=== PATIENT | male | born 1975 | race Caucasian/White ===

== ENCOUNTER 2017-08-01 11:05 | Emergency (ER) | payer SELFPAY ==
[~2017-08-01] VITALS: Ht 167.6 cm; Wt 70.0 kg
[~2017-08-01 11:05] MED LIST: BACTRIM DS1 TAB PO; BACTROBAN2 % EX; CELEXA10 MG PO; CELEXA20 MG PO; CIPROFLOXACN500 MG PO; CITALOPRAM20 MG PO; FLEXERIL OR; FLEXERIL PO; GABAPENTIN300 MG PO; HYDROCO/APAP1 TA9 OR; LORTAB 7.5-3251 TAB PO; MEDDOSEPAK PO; METRONIDAZOL500 MG PO; NAPROSYN250 MG PO; NAPROSYN500 MG PO; NEURONTIN300 MG PO; NORCO1 TA1 PO; PERCOCET 5/325M1 TAB PO; RISPERDAL0.5 MG PO; ULTRAM50 M1 PO; ULTRAM50 MG OR; ULTRAM50 MG PO; XANAX0.25 MG PO; ZOFRAN ODT4 MG PO; ZOFRAN4 MG/TAB PO
[2017-08-01] MEDS ORDERED: CITALOPRAM40 MG PO (11:11)
[2017-08-01] MEDS ORDERED: MEDDOSEPAK PO (12:24)
[2017-08-01] MEDS ORDERED: FLEXERIL PO (12:24)
[2017-08-01] MEDS ORDERED: TORADOL PO (12:24)
[2017-08-01 12:33] VITALS: BP 136/89
== END 2017-08-01 12:33 | disposition home or self-care (01) | DRG 552 ==
LOC: ED 11:05
DX: M54.5 Low back pain (principal); F17.210 Nicotine dependence, cigarettes, uncomplicated; G89.29 Other chronic pain; F32.9 Major depressive disorder, single episode, unspecified

== ENCOUNTER 2018-06-29 08:57 | Emergency (ER) | payer SELFPAY ==
[~2018-06-29] VITALS: Ht 167.6 cm; Wt 60.0 kg
[~2018-06-29 08:57] MED LIST changes: +CITALOPRAM40 MG PO; +TORADOL PO
[2018-06-29 10:01] LABS: URINE BILIRUBIN - DIPSTICK NEGATIVE (NEGATIVE); URINE BLOOD DIPSTICK SMALL (NEGATIVE); URINE COLOR YELLOW; URINE GLUCOSE - DIPSTICK NEGATIVE (NEGATIVE); URINE KETONE NEGATIVE (NEGATIVE); URINE LEUK ESTERASE NEGATIVE (NEGATIVE); URINE NITRITE - DIPSTICK NEGATIVE (Negative); URINE PH 6.5 (4.5-8.0); URINE PROTEIN - DIPSTICK NEGATIVE (NEG-TRACE); URINE SPECIFIC GRAVITY 1.025; URINE UROBILINOGEN - DIPSTICK 0.2 E.U./dL (0.2)
[2018-06-29 10:02] LABS: HEMATOCRIT 43.5 % (39.0-50.0); HEMOGLOBIN 14.3 g/dl (14.0-18.0); IMMATURE GRANULOCYTES 0.2 % (0.0-5.0); MEAN CELL VOLUME 99.3 fL CALC (80.0-100.0); MEAN CORPUSCULAR HGB 32.6 pG CALC (26.0-32.0); MEAN CORPUSCULAR HGB CONC 32.9 g/L CALC (32.0-36.0); NEUT# 4.29 thou/uL (1.82-7.42); RED BLOOD COUNT 4.38 mill/uL (4.70-6.10); RED CELL DISTRI WIDTH 12.6 % (11.5-15.5)
[2018-06-29 10:04] LABS: URINE MUCUS FEW hpf (NONE-FEW); URINE RBC 0-2 RBC/hpf (0-5)
[2018-06-29 10:20] LABS: ALBUMIN 3.9 g/dL (3.2-5.0); ALKALINE PHOSPHATASE 57 u/l (38-126); AMYLASE 100 u/l (30-110); ANION GAP 10 (6-22 (CALC)); BILIRUBIN, TOTAL 0.3 mg/dL (0.0-1.4); BUN 11 mg/dL (9-20); BUN/CREATININE RATIO 10 (12-20 (CALC)); CARBON DIOXIDE 27 mmol/l (22-30); CHLORIDE 108 mmol/l (95-108); CREATININE 1.1 mg/dL (0.7-1.3); GFR > 60 ML/MIN (>=60 (CALC)); GFR FOR AFR.AMER. > 60 ML/MIN (>=60 (CALC)); LIPASE 131 u/l (23-300); POTASSIUM 4.1 mmol/l (3.5-5.1); SGOT/AST 28 u/l (17-59); SODIUM 140 mmol/l (137-146); TOTAL PROTEIN 6.3 g/dL (6.3-8.2)
[2018-06-29] MEDS ORDERED: CIPROFLOXACN500 MG PO (11:50)
[2018-06-29] MEDS ORDERED: ZOFRAN ODT4 MG PO (11:50)
[2018-06-29 12:05] VITALS: BP 132/82
== END 2018-06-29 12:12 | disposition home or self-care (01) | DRG 392 ==
LOC: ED 08:57
PROVIDERS: Emergency Medicine
DX: K52.9 Noninfective gastroenteritis and colitis, unspecified (principal); R10.33 Periumbilical pain; R11.2 Nausea with vomiting, unspecified; R19.7 Diarrhea, unspecified

== ENCOUNTER 2018-07-19 08:15 | Emergency (ER) | payer OTHER ==
[~2018-07-19] VITALS: Ht 165.1 cm; Wt 69.5 kg
[2018-07-19 09:55] VITALS: BP 136/79
[2018-07-19] MEDS ORDERED: TRAMADOL HYDROC50 MG PO (10:01)
== END 2018-07-19 10:00 | disposition home or self-care (01) | DRG 563 ==
LOC: ED 08:15
DX: S46.912A Strain of unspecified muscle, fascia and tendon at shoulder and upper arm level, left arm, initial encounter (principal); F17.210 Nicotine dependence, cigarettes, uncomplicated; X58.XXXA Exposure to other specified factors, initial encounter

== ENCOUNTER 2018-08-05 21:20 | Emergency (ER) | payer SELFPAY ==
[~2018-08-05] VITALS: Ht 165.1 cm; Wt 63.6 kg
[~2018-08-05 21:20] MED LIST changes: +TRAMADOL HYDROC50 MG PO
[2018-08-05 21:29] VITALS: BP 122/71
== END 2018-08-05 22:50 | disposition left against medical advice (07) | DRG 914 ==
LOC: ED 21:20
DX: S09.90XA Unspecified injury of head, initial encounter (principal); S43.402A Unspecified sprain of left shoulder joint, initial encounter; M25.512 Pain in left shoulder; S43.102A Unspecified dislocation of left acromioclavicular joint, initial encounter; Z91.19 Patient's noncompliance with other medical treatment and regimen; W18.39XA Other fall on same level, initial encounter; Y93.E8 Activity, other personal hygiene; Y92.002 Bathroom of unspecified non-institutional (private) residence as the place of occurrence of the external cause

== ENCOUNTER 2018-12-13 07:59 | Emergency (ER) | payer MEDICAID ==
[~2018-12-13] VITALS: Ht 162.6 cm; Wt 68.0 kg
[2018-12-13] MEDS ORDERED: PERCOCET 10/31 COMBO PO (08:27)
[2018-12-13 09:32] VITALS: BP 130/89
== END 2018-12-13 09:45 | disposition home or self-care (01) | DRG 103 ==
LOC: ED 07:59
DX: R51 Headache (principal); F17.210 Nicotine dependence, cigarettes, uncomplicated

== ENCOUNTER 2019-02-27 19:11 | Emergency (ER) | payer OTHER ==
[~2019-02-27] VITALS: Ht 170.2 cm; Wt 68.2 kg
[~2019-02-27 19:11] MED LIST changes: +PERCOCET 10/31 COMBO PO
[2019-02-27] MEDS ORDERED: CITALOPRAM40 M1 PO (19:32)
[2019-02-27] MEDS ORDERED: VENLAFAXINE HCL75 M1 PO (19:33)
[2019-02-27] MEDS ORDERED: TORADOL PO (22:01)
[2019-02-27 22:10] VITALS: BP 111/70
== END 2019-02-27 22:40 | disposition home or self-care (01) ==
LOC: ED 19:11
DX: S00.01XA Abrasion of scalp, initial encounter (principal); S00.81XA Abrasion of other part of head, initial encounter; S16.1XXA Strain of muscle, fascia and tendon at neck level, initial encounter; S20.219A Contusion of unspecified front wall of thorax, initial encounter; F17.200 Nicotine dependence, unspecified, uncomplicated; Y00.XXXA Assault by blunt object, initial encounter; Y92.009 Unspecified place in unspecified non-institutional (private) residence as the place of occurrence of the external cause

== ENCOUNTER 2020-04-13 06:24 | Day surgery (SDC) | payer OTHER ==
[~2020-04-13] VITALS: Ht 170.2 cm; Wt 63.5 kg
[~2020-04-13 06:24] MED LIST changes: +BL IBUPROFEN200 MG PO; +CITALOPRAM40 M1 PO; +CYMBALTA30 MG PO; +HYDROCODONE/ACE1 TAB PO; +HYDROXYZINE HCL10 MG PO; +MIRTAZAPINE15 M1 PO; +NARCAN4 MG/0.1 M; +NORCO1 TA2 PO; +VENLAFAXINE HCL75 M1 PO
[2020-04-13 13:24] VITALS: BP 128/85
== END 2020-04-13 08:46 | disposition home or self-care (01) ==
LOC: ORM 06:24
PROVIDERS: ATTEND Anesthesiology Pain Medicine
DX: M54.5 Low back pain (principal); M54.6 Pain in thoracic spine; Z01.84 Encounter for antibody response examination

== ENCOUNTER 2020-07-08 12:39 | Emergency (ER) | payer OTHER ==
[2020-07-08 15:08] VITALS: BP 122/89
[2020-08-02] MEDS ORDERED: LORTAB 1010 MG PO (08:28)
[2020-08-09] MEDS ORDERED: LORTAB 1010 MG PO (08:30)
[2020-09-13] MEDS ORDERED: ALPRAZOLAM ER0.5 MG PO (08:15)
[2020-09-13] MEDS ORDERED: LORTAB 1010 MG PO (08:25)
== END 2020-07-08 15:08 | disposition left against medical advice (07) ==
LOC: ED 12:39
DX: M54.6 Pain in thoracic spine (principal); G89.29 Other chronic pain; F31.9 Bipolar disorder, unspecified; F17.200 Nicotine dependence, unspecified, uncomplicated; Z98.1 Arthrodesis status; Z91.19 Patient's noncompliance with other medical treatment and regimen

== ENCOUNTER 2020-08-06 14:34 | Emergency (ER) | payer OTHER ==
[~2020-08-06] VITALS: Ht 170.2 cm; Wt 64.0 kg
[~2020-08-06 14:34] MED LIST changes: +LORTAB 1010 MG PO
[2020-08-06] MEDS ORDERED: SEROQUEL25 MG PO (15:00)
[2020-08-06] MEDS ORDERED: KEFLEX500 MG PO (16:36)
[2020-08-06] MEDS ORDERED: CIPROFLOXACN500 MG PO (16:36)
[2020-08-06 16:38] VITALS: BP 148/72
[2020-08-09] MEDS ORDERED: LORTAB 1010 MG PO (08:30)
[2020-09-13] MEDS ORDERED: ALPRAZOLAM ER0.5 MG PO (08:15)
[2020-09-13] MEDS ORDERED: LORTAB 1010 MG PO (08:25)
== END 2020-08-06 16:45 | disposition home or self-care (01) ==
LOC: ED 14:34
DX: S61.452A Open bite of left hand, initial encounter (principal); F31.9 Bipolar disorder, unspecified; F17.210 Nicotine dependence, cigarettes, uncomplicated; W58.01XA Bitten by alligator, initial encounter; Y93.11 Activity, swimming; Y92.828 Other wilderness area as the place of occurrence of the external cause; Z88.3 Allergy status to other anti-infective agents

== ENCOUNTER 2020-08-08 09:19 | Emergency (ER) | payer OTHER ==
[~2020-08-08] VITALS: Ht 162.6 cm; Wt 65.0 kg
[~2020-08-08 09:19] MED LIST changes: +KEFLEX500 MG PO; +SEROQUEL25 MG PO
[2020-08-08 10:02] VITALS: BP 137/90
[2020-08-09] MEDS ORDERED: LORTAB 1010 MG PO (08:30)
[2020-09-13] MEDS ORDERED: ALPRAZOLAM ER0.5 MG PO (08:15)
[2020-09-13] MEDS ORDERED: LORTAB 1010 MG PO (08:25)
== END 2020-08-08 10:10 | disposition home or self-care (01) ==
LOC: ED 09:19
DX: S61.452D Open bite of left hand, subsequent encounter (principal); F17.210 Nicotine dependence, cigarettes, uncomplicated; F31.9 Bipolar disorder, unspecified; V00-Y99 External causes of morbidity

== ENCOUNTER 2020-10-26 07:56 | Day surgery (SDC) | payer OTHER ==
[~2020-10-26] VITALS: Ht 162.6 cm; Wt 63.5 kg
[~2020-10-26 07:56] MED LIST changes: +ALPRAZOLAM ER0.5 MG PO
[2020-10-26] MEDS ORDERED: LORTAB 1010 MG PO (10:20)
[2020-10-26 10:36] VITALS: BP 144/94
== END 2020-10-26 10:26 | disposition home or self-care (01) ==
LOC: ORM 07:56
PROVIDERS: ATTEND Anesthesiology Pain Medicine
DX: M54.5 Low back pain (principal); M47.895 Other spondylosis, thoracolumbar region

== ENCOUNTER 2020-10-31 23:14 | Emergency (ER) | payer OTHER ==
[~2020-10-31] VITALS: Ht 162.6 cm; Wt 63.3 kg
[2020-11-01 01:29] LABS: IMMATURE GRANULOCYTES 0.4 % (0.0-5.0); MEAN CELL VOLUME 100.5 fL CALC (80.0-100.0); MEAN CORPUSCULAR HGB 32.7 pG CALC (26.0-32.0); MEAN CORPUSCULAR HGB CONC 32.5 g/dL CAL (32.0-36.0); NEUT# 13.41 thou/uL (1.82-7.42); RED BLOOD COUNT 3.7 mill/uL (4.70-6.10); RED CELL DISTRI WIDTH 12.3 % (11.5-15.5)
[2020-11-01 01:33] LABS: HEMATOCRIT 37.2 % (39.0-50.0); HEMOGLOBIN 12.1 g/dl (14.0-18.0)
[2020-11-01 01:46] LABS: URINE BILIRUBIN - DIPSTICK NEGATIVE (NEGATIVE); URINE BLOOD DIPSTICK SMALL (NEGATIVE); URINE COLOR YELLOW; URINE GLUCOSE - DIPSTICK NEGATIVE (NEGATIVE); URINE KETONE NEGATIVE (NEGATIVE); URINE NITRITE - DIPSTICK NEGATIVE (Negative); URINE PROTEIN - DIPSTICK NEGATIVE (NEG-TRACE); URINE SPECIFIC GRAVITY >=1.030; URINE UROBILINOGEN - DIPSTICK 0.2 E.U./dL (0.2)
[2020-11-01 01:47] LABS: URINE LEUK ESTERASE NEGATIVE (NEGATIVE)
[2020-11-01 01:48] LABS: URINE EPITHELIAL CELLS FEW EPI/hpf (0-FEW)
[2020-11-01 01:49] LABS: URINE BACTERIA FEW hpf
[2020-11-01 02:00] LABS: ALBUMIN 3.9 g/dL (3.2-5.0); ALKALINE PHOSPHATASE 58 u/l (38-126); BILIRUBIN, TOTAL 0.3 mg/dL (0.0-1.4); BUN 14 mg/dL (9-20); BUN/CREATININE RATIO 16 (12-20 (CALC)); CARBON DIOXIDE 31 mmol/l (22-30); CHLORIDE 103 mmol/l (95-108); CREATININE 0.9 mg/dL (0.7-1.3); GFR > 60 ML/MIN (>=60 (CALC)); GFR FOR AFR.AMER. > 60 ML/MIN (>=60 (CALC)); SGOT/AST 18 u/l (17-59); SODIUM 138 mmol/l (137-146); TOTAL PROTEIN 6.5 g/dL (6.3-8.2)
[2020-11-01 02:01] LABS: ANION GAP 8 (6-22 (CALC)); POTASSIUM 3.6 mmol/l (3.5-5.1)
[2020-11-01] MEDS ORDERED: KEFLEX500 MG PO (02:06)
[2020-11-01 03:34] VITALS: BP 133/81
[2020-11-29] MEDS ORDERED: LORTAB 1010 MG PO (08:42)
[2021-01-17] MEDS ORDERED: LORTAB 1010 MG PO (08:32)
== END 2020-11-01 03:54 | disposition home or self-care (01) ==
LOC: ED 23:14
PROVIDERS: Emergency Medicine
DX: F14.10 Cocaine abuse, uncomplicated (principal); N39.0 Urinary tract infection, site not specified; S09.90XA Unspecified injury of head, initial encounter; F31.9 Bipolar disorder, unspecified; F17.200 Nicotine dependence, unspecified, uncomplicated; X58.XXXA Exposure to other specified factors, initial encounter

== ENCOUNTER 2021-01-04 06:32 | Day surgery (SDC) | payer OTHER ==
[~2021-01-04] VITALS: Ht 162.6 cm; Wt 63.5 kg
[2021-01-04 09:33] VITALS: BP 141/88
== END 2021-01-04 10:15 | disposition home or self-care (01) ==
LOC: ORM 06:32
PROVIDERS: ATTEND Anesthesiology Pain Medicine
DX: M54.6 Pain in thoracic spine (principal); M54.59 Other low back pain

== ENCOUNTER 2021-05-23 19:16 | Emergency (ER) | payer OTHER ==
[~2021-05-23] VITALS: Ht 162.6 cm; Wt 72.0 kg
[2021-05-23 19:46] VITALS: BP 115/75
[2021-05-23 20:00] VITALS: BP 128/86
[2021-05-23] MEDS ORDERED: AMOX/K CLAV875 M1 PO (20:10)
[2021-05-23] MEDS ORDERED: HYDROCO/APAP1 TA9 PO (20:10)
[2021-05-23] MEDS ORDERED: CITALOPRAM20 M1 PO (20:39)
[2021-05-23 20:48] VITALS: BP 128/86
== END 2021-05-23 20:52 | disposition home or self-care (01) ==
LOC: ED 19:16
DX: S61.452A Open bite of left hand, initial encounter (principal); F31.9 Bipolar disorder, unspecified; F17.200 Nicotine dependence, unspecified, uncomplicated; W54.0XXA Bitten by dog, initial encounter; Y93.K9 Activity, other involving animal care; Y92.007 Garden or yard of unspecified non-institutional (private) residence as the place of occurrence of the external cause; Z88.8 Allergy status to other drugs, medicaments and biological substances